=== PATIENT | female | born 1985 | race Asian ===

== ENCOUNTER 2021-05-18 13:08 | Emergency (ER) | payer OTHER ==
[2021-05-18 13:25] VITALS: TEMP 97.6; BMI 36.0
[2021-05-18] MEDS ORDERED: ACETAMINOPHEN 1000 MG/100 ML VIAL IVPB ONE (15:28)
[2021-05-18] MEDS ORDERED: SODIUM CHLORIDE 1,000 ML IV STA (15:28)
[2021-05-18] MEDS ORDERED: ACETAMINOPHEN INJECTION 100 ML IVPB ONE (15:56)
[2021-05-18 16:10] LABS: BASO % 0.4 % (0-2.0); EOS % 0.4 % (0-4.5); HEMATOCRIT 41.2 % (32.4-45.2); HEMOGLOBIN 13.7 GM/dL (10.7-15.3); LYMPH % 19.6 % (8-40); MCH 26.1 pg (25.7-33.7); MCHC 33.2 g/dl (32.0-36.0); MEAN CELL VOLUME 78.7 fl (80-96); MEAN PLT VOLUME 7.7 fl (7.5-11.1); MONO % 4.4 % (3.8-10.2); NEUT % 75.2 % (42.8-82.8); PLATELET COUNT 361 10^3/uL (134-434); RBC 5.23 M/mm3 (3.60-5.2); RDW 14.6 % (11.6-15.6); WHITE BLOOD COUNT 11.7 K/mm3 (4.0-10.0)
[2021-05-18 16:16] LABS: HCG,QUALITATIVE URINE Negative
[2021-05-18 16:22] LABS: CALCIUM 9.2 mg/dL (8.5-10.1)
[2021-05-18 16:23] LABS: ALBUMIN 4.8 g/dl (3.4-5.0); BLOOD UREA NITROGEN 11.6 mg/dL (7-18)
[2021-05-18 16:26] LABS: CREATININE 0.8 mg/dL (0.55-1.3)
[2021-05-18 16:27] LABS: BILIRUBIN,TOTAL 0.6 mg/dL (0.2-1); TOT PROT 8.2 g/dl (6.4-8.2)
[2021-05-18 16:39] LABS: URINE APPEARANCE CLEAR; URINE BILIRUBIN NEGATIVE (NEGATIVE); URINE COLOR YELLOW; URINE GLUCOSE (UA) NEGATIVE (NEGATIVE); URINE KETONE NEGATIVE (NEGATIVE); URINE LEUK ESTERASE NEGATIVE (NEGATIVE); URINE NITRITE NEGATIVE (NEGATIVE); URINE PROTEIN NEGATIVE (NEGATIVE); URINE UROBILINOGEN 0.2 mg/dL (0.2-1.0)
[2021-05-18] MEDS ORDERED: KETOROLAC TROMETHAMINE 30 MG/1 ML VIAL IVPUSH ONE (17:49)
[2021-05-18] MEDS ORDERED: KETOROLAC TROMETHAMINE 30 MG/1 ML VIAL ONE (17:59)
[2021-05-18 18:15] VITALS: BP 118/62; PULSE 77
== END 2021-05-18 18:16 | disposition home or self-care (01) ==
LOC: JER 13:08
PROC: 3E0333Z Introduction of Anti-inflammatory into Peripheral Vein, Percutaneous Approach (ICD-10-PCS; principal; 2021-05-18)
PROC: 3E0337Z Introduction of Electrolytic and Water Balance Substance into Peripheral Vein, Percutaneous Approach (ICD-10-PCS; 2021-05-18)
DX: R10.31 Right lower quadrant pain (principal); N83.201 Unspecified ovarian cyst, right side
CPT/HCPCS: 36415; 74177-TC; 80053; 81003; 83690; 84703; 85025; 87086; 96361; 96374; 99285-25; C9803; J0131; Q9967; U0003; U0005